=== PATIENT | male | born 1940 | race Caucasian/White ===

== ENCOUNTER 2024-09-22 12:47 | Inpatient (IN) | payer MEDICARE, OTHER ==
[2024-09-22] VITALS (7 sets, daily range): BP systolic 104–112; BP diastolic 63–70; PULSE 101–114; RESP 20–24; TEMP 97.5–97.9; O2SAT 93–97
[~2024-09-22] VITALS: Ht 177.8 cm; Wt 90.9 kg
[2024-09-22 13:44] LABS: BASOPHILS % (AUTO) 0 % (0-1); EOSINOPHILS % (AUTO) 0 % (0-6); HEMATOCRIT 35.6 % (42.0-52.0); HEMOGLOBIN 12.3 g/dl (14.0-17.9); LYMPHOCYTES # (AUTO) 0.9 X10'3 (1.1-4.8); LYMPHOCYTES % (AUTO) 6.7 % (21-51); MEAN CORPUSCULAR HEMOGLOBIN 31.9 PG (27.0-31.0); MEAN CORPUSCULAR HGB CONC 34.5 g/dL (33.0-36.5); MEAN CORPUSCULAR VOLUME 92.4 FL (78-98); MEAN PLATELET VOLUME 8.1 FL (7.4-10.4); MONOCYTES # (AUTO) 1.6 X10'3 (0-0.9); MONOCYTES % (AUTO) 11.4 % (2-12); NEUTROPHILS # (AUTO) 11.2 X10'3 (1.8-7.7); NEUTROPHILS % (AUTO) 81.9 % (42-75); PLATELET COUNT 190 X10'3 (140-440); RED BLOOD COUNT 3.86 X10'6 (4.70-6.10); RED CELL DISTRIBUTION WIDTH 13.3 % (11.5-14.5); WHITE BLOOD COUNT 13.7 X10'3 (4.5-11.0)
[2024-09-22 14:03] LABS: ALANINE AMINOTRANSFERASE 26 U/L (12-78); ALBUMIN 3.3 G/DL (3.4-5.0); ALKALINE PHOSPHATASE 54 IU/L (46-116); ANION GAP 9 (8-16); ASPARTATE AMINO TRANSFERASE 18 U/L (10-37); BILIRUBIN,TOTAL 0.7 MG/DL (0.1-1.0); BLOOD UREA NITROGEN 43 MG/DL (7-18); BUN/CREATININE RATIO 21.8 (10.0-20.0); CALCIUM 8.6 MG/DL (8.5-10.1); CHLORIDE 100 MMOL/L (99-107); CREATININE 1.97 MG/DL (0.60-1.10); GLUCOSE 121 MG/DL (70-104); POTASSIUM 3.8 MMOL/L (3.5-5.1); SODIUM 135 MMOL/L (135-145); TOTAL CARBON DIOXIDE 26.2 MMOL/L (24-32); TOTAL PROTEIN 6.6 G/DL (6.4-8.2); eCRCL 30 ML/MIN; eGFR 33 ML/MIN
[2024-09-22 14:14] LABS: PRO BRAIN NATRIURETIC PEPTIDE 8862 PG/ML (0-450)
[2024-09-22 14:33] LABS: MAGNESIUM 1.9 MG/DL (1.5-2.4)
[2024-09-22] MEDS ORDERED: ondansetron/PF 4mg/2ml inj IV PRN (14:45)
[2024-09-22] MEDS ORDERED: acetaminophen 650mg rectal suppository RC PRN (14:45)
[2024-09-22] MEDS ORDERED: diphenhydrAMINE 50 mg/ml inj IV PRN (14:45)
[2024-09-22] MEDS ORDERED: HYDROcodone/acetaminophen 5mg/325mg tablet PO PRN (14:45)
[2024-09-22] MEDS ORDERED: diphenhydrAMINE 25mg capsule PO PRN (14:45)
[2024-09-22] MEDS ORDERED: acetaminophen 325mg tablet PO PRN ×2 (14:45)
[2024-09-22] MEDS ORDERED: morphine 2 MG/ML inj. syringe IV PRN (14:45)
[2024-09-22] MEDS ORDERED: bisacodyl 10mg suppository rectal RC PRN (14:45)
[2024-09-22] MEDS ORDERED: mag hydrox/Alum hydrox/simeth 30ml oral suspension PO PRN (14:45)
[2024-09-22] MEDS ORDERED: ondansetron 4mg rapidly disintigrating tab PO PRN (14:45)
[2024-09-22] MEDS ORDERED: magnesium hydroxide 30ml (MOM) UD suspension PO PRN (14:45)
[2024-09-22] MEDS: normal saline 1000ML IV soln IVB ONE (14:46)
[2024-09-22 15:00] LABS: D-DIMER 1.64 MG/L FEU (0-0.50)
[2024-09-22] MEDS: normal saline 1000ml 1,000 ML IV SCH (15:14)
[2024-09-22] MEDS: CefTRIAXone/D5W-Rocephin 1gm 50 ML IV SCH (15:14)
[2024-09-22] MEDS: azithromycin/NS 500mg/250ml 250 ML IV SCH (15:14)
[2024-09-22 15:26] LABS: HEMOGLOBIN A1C 6.1 % (4.5-6.2)
[2024-09-22 15:28] LABS: CREATINE KINASE 168 U/L (39-308); LIPASE 26 U/L (16-77)
[2024-09-22 15:36] LABS: APTT 47 SECONDS (22-32); INR 1.1 INR; PROTHROMBIN TIME 11.2 SECONDS (9.0-12.0)
[2024-09-22 15:38] LABS: BILIRUBIN,URINE SMALL (Neg); CLARITY,URINE SLIGHTLY CLOUDY (Clear); GLUCOSE, URINE NEGATIVE (Neg); KETONES,URINE NEGATIVE (Neg); LEUKOCYTE ESTERASE ,URINE NEGATIVE (Neg); NITRITES, URINE NEGATIVE (Neg); OCCULT BLOOD,URINE NEGATIVE (Neg); PH,URINE 5.5 (4.8-8.0); PROTEIN,URINE TRACE mg/dl (Neg); UROBILINOGEN,URINE 0.2 E.U/dL (0.2-1.0)
[2024-09-22 15:41] LABS: COLOR,URINE DARK YELLOW (Yellow); UA COLLECTION TYPE NON-SPECIFIED
[2024-09-22] MEDS: aspirin 81mg, enteric-coated 1 TAB TABLET.DR PO SCH (15:48)
[2024-09-22] MEDS: ipratropium/albuterol 3ml nebule NEB PRN (15:50)
[2024-09-22 15:51] LABS: AMORPHOUS URATES 1+; BACTERIA,URINE FEW /HPF (Neg); MUCUS STRANDS FEW /LPF (Neg); RBC,URINE NONE SEEN /HPF (0-2); RENAL CELLS, URINE FEW /HPF; SQUAMOUS EPITHELIAL CELL,UR NONE SEEN /LPF (FEW); WBC,URINE 0-4 /HPF (0-4)
[2024-09-22 17:00] LABS: PHOSPHORUS 4.2 MG/DL (2.3-4.5)
[2024-09-22] MEDS ORDERED: TAMSULOSIN (17:06)
[2024-09-22] MEDS ORDERED: DILT240C47 (17:06)
[2024-09-22] MEDS ORDERED: OLME20TA69 (17:06)
[2024-09-22] MEDS ORDERED: METO-384 PO (17:06)
[2024-09-22] MEDS ORDERED: OXYC10TA47 (17:06)
[2024-09-22] MEDS ORDERED: CHLO50TA (17:06)
[2024-09-22] MEDS ORDERED: DICL75TA28 (17:06)
[2024-09-22] MEDS ORDERED: FLO0.4C (17:06)
[2024-09-22] MEDS ORDERED: heparin 10,000 units/1 ML INJ IV PRN (17:55)
[2024-09-22] MEDS: MESSAGE TO NURSING IV ONE (18:31)
[2024-09-22] MEDS: heparin 10,000 units/1 ML INJ IV ONE (18:33)
[2024-09-22] MEDS: HEPARIN DRIP-CARDIAC**PHARMACIST-TO-DOSE IV ONE (18:34)
[2024-09-22] MEDS: heparin 25,000 UNIT/250ml bag 250 ML IV PRN (18:34)
[2024-09-22] MEDS ORDERED: LABE300T4 (18:43)
[2024-09-22] MEDS ORDERED: heparin, porcine 5000 units/ml vial SQ SCH (20:00)
[2024-09-22] MEDS: methylPREDNISolone sod succ/PF 40mg inj. IV SCH (21:20)
[2024-09-22] MEDS: docusate sod 100mg capsule PO SCH (21:20)
[2024-09-23] VITALS (14 sets, daily range): BP systolic 110–140; BP diastolic 70–99; PULSE 104–155; RESP 16–26; TEMP 97.3–97.9; O2SAT 96–98
[2024-09-23] MEDS: heparin 25,000 UNIT/250ml bag 250 ML IV PRN (01:18)
[2024-09-23] MEDS: MESSAGE TO NURSING IV ONE ×4 (01:52→23:26)
[2024-09-23] MEDS: pantoprazole 40mg Tablet.DR PO SCH (08:04)
[2024-09-23 08:45] LABS: BASOPHILS % (AUTO) 0.1 % (0-1); EOSINOPHILS % (AUTO) 0 % (0-6); HEMATOCRIT 32.4 % (42.0-52.0); HEMOGLOBIN 11.3 g/dl (14.0-17.9); LYMPHOCYTES # (AUTO) 0.4 X10'3 (1.1-4.8); LYMPHOCYTES % (AUTO) 5.1 % (21-51); MEAN CORPUSCULAR VOLUME 91.4 FL (78-98); MEAN PLATELET VOLUME 8.1 FL (7.4-10.4); MONOCYTES # (AUTO) 0.1 X10'3 (0-0.9); MONOCYTES % (AUTO) 1.6 % (2-12); NEUTROPHILS # (AUTO) 7.4 X10'3 (1.8-7.7); NEUTROPHILS % (AUTO) 93.2 % (42-75); PLATELET COUNT 166 X10'3 (140-440); RED BLOOD COUNT 3.54 X10'6 (4.70-6.10); RED CELL DISTRIBUTION WIDTH 13.1 % (11.5-14.5); WHITE BLOOD COUNT 7.9 X10'3 (4.5-11.0)
[2024-09-23 09:10] LABS: ALANINE AMINOTRANSFERASE 25 U/L (12-78); ALBUMIN 2.6 G/DL (3.4-5.0); ALBUMIN/GLOBULIN RATIO 0.8 (1.1-1.5); ALKALINE PHOSPHATASE 47 IU/L (46-116); ANION GAP 11 (8-16); ASPARTATE AMINO TRANSFERASE 22 U/L (10-37); BILIRUBIN,TOTAL 0.3 MG/DL (0.1-1.0); BLOOD UREA NITROGEN 41 MG/DL (7-18); BUN/CREATININE RATIO 28.7 (10.0-20.0); CALCIUM 8.3 MG/DL (8.5-10.1); CHLORIDE 103 MMOL/L (99-107); CHOL/HDL RATIO 2.6 (0.00-4.99); CHOLESTEROL 113 MG/DL (0-200); CREATININE 1.43 MG/DL (0.60-1.10); GLUCOSE 190 MG/DL (70-104); HDL CHOLESTEROL 43 MG/DL (35-60); LDL CHOLESTEROL 57 MG/DL (50-100); POTASSIUM 3.4 MMOL/L (3.5-5.1); SODIUM 136 MMOL/L (135-145); TOTAL CARBON DIOXIDE 21.8 MMOL/L (24-32); TOTAL PROTEIN 5.8 G/DL (6.4-8.2); TRIGLYCERIDES 59 MG/DL (20-135); eCRCL 41 ML/MIN; eGFR 47 ML/MIN
[2024-09-23] MEDS ORDERED: magnesium sulf-water 2g/50mL 50 ML IV PRN (14:05)
[2024-09-23] MEDS ORDERED: potassium Cl 40MEQ/1/2NS 520ml 520 ML IV PRN (14:05)
[2024-09-23] MEDS ORDERED: magnesium Cl slow-release 64mg tablet PO PRN (14:05)
[2024-09-23] MEDS ORDERED: magnesium sulf-water 4G/100mL 100 ML IV PRN (14:05)
[2024-09-23] MEDS ORDERED: diltiazem-D5W 125mg/125ml 125 ML IV SCH (19:10)
[2024-09-23] MEDS: K and/or MAG REPLACEMENT MC SCH (20:00)
[2024-09-23] MEDS: diltiazem-NS 100mg/100ml 100 ML IV SCH (21:02)
[2024-09-24] VITALS (39 sets, daily range): BP systolic 98–144; BP diastolic 66–95; PULSE 96–153; RESP 17–34; TEMP 97.1–98.4; O2SAT 91–98
[2024-09-24] MEDS: Melatonin 3mg tablet PO ONE (00:43)
[2024-09-24 05:47] LABS: BASOPHILS % (AUTO) 0 % (0-1); EOSINOPHILS % (AUTO) 0 % (0-6); HEMATOCRIT 30.8 % (42.0-52.0); HEMOGLOBIN 10.8 g/dl (14.0-17.9); LYMPHOCYTES # (AUTO) 0.5 X10'3 (1.1-4.8); LYMPHOCYTES % (AUTO) 4.5 % (21-51); MEAN CORPUSCULAR HGB CONC 34.9 g/dL (33.0-36.5); MEAN CORPUSCULAR VOLUME 91.6 FL (78-98); MEAN PLATELET VOLUME 7.7 FL (7.4-10.4); MONOCYTES # (AUTO) 0.4 X10'3 (0-0.9); MONOCYTES % (AUTO) 3.3 % (2-12); NEUTROPHILS # (AUTO) 10.3 X10'3 (1.8-7.7); NEUTROPHILS % (AUTO) 92.2 % (42-75); PLATELET COUNT 189 X10'3 (140-440); RED BLOOD COUNT 3.37 X10'6 (4.70-6.10); RED CELL DISTRIBUTION WIDTH 13.3 % (11.5-14.5); WHITE BLOOD COUNT 11.2 X10'3 (4.5-11.0)
[2024-09-24 06:09] LABS: ALANINE AMINOTRANSFERASE 28 U/L (12-78); ALBUMIN 2.6 G/DL (3.4-5.0); ALBUMIN/GLOBULIN RATIO 0.8 (1.1-1.5); ALKALINE PHOSPHATASE 46 IU/L (46-116); ANION GAP 10 (8-16); ASPARTATE AMINO TRANSFERASE 27 U/L (10-37); BILIRUBIN,TOTAL 0.3 MG/DL (0.1-1.0); BLOOD UREA NITROGEN 48 MG/DL (7-18); BUN/CREATININE RATIO 39.7 (10.0-20.0); CALCIUM 8.6 MG/DL (8.5-10.1); CHLORIDE 105 MMOL/L (99-107); CREATININE 1.21 MG/DL (0.60-1.10); GLUCOSE 184 MG/DL (70-104); POTASSIUM 3.2 MMOL/L (3.5-5.1); SODIUM 137 MMOL/L (135-145); TOTAL CARBON DIOXIDE 21.6 MMOL/L (24-32); TOTAL PROTEIN 5.8 G/DL (6.4-8.2); eCRCL 49 ML/MIN; eGFR 57 ML/MIN
[2024-09-24] MEDS: MESSAGE TO NURSING IV ONE (07:08)
[2024-09-24] MEDS: potassium Cl 20 mEq SR tablet PO PRN (07:42)
[2024-09-24] MEDS: albuterol 2.5 MG/3 ML nebule NEB SCH (15:33)
[2024-09-24] MEDS: amiodarone 200mg tablet PO SCH (16:43)
[2024-09-24] MEDS: furosemide 20 MG/2 ML vial IV SCH (19:51)
[2024-09-24] MEDS: heparin, porcine 5000 units/ml vial SQ SCH (19:52)
[2024-09-24] MEDS: methylPREDNISolone sod succ/PF 40mg inj. IV SCH (19:54)
[2024-09-24] MEDS: temazepam 15mg capsule PO PRN (19:58)
[2024-09-25] VITALS (26 sets, daily range): BP systolic 109–143; BP diastolic 58–87; PULSE 85–141; RESP 15–28; TEMP 97–98.8; O2SAT 96–98
[2024-09-25 07:04] LABS: BASOPHILS % (AUTO) 0 % (0-1); EOSINOPHILS % (AUTO) 0 % (0-6); HEMATOCRIT 32.6 % (42.0-52.0); LYMPHOCYTES # (AUTO) 0.4 X10'3 (1.1-4.8); LYMPHOCYTES % (AUTO) 3.2 % (21-51); MEAN CORPUSCULAR HEMOGLOBIN 31.4 PG (27.0-31.0); MEAN CORPUSCULAR HGB CONC 33.7 g/dL (33.0-36.5); MEAN CORPUSCULAR VOLUME 93.3 FL (78-98); MEAN PLATELET VOLUME 7.8 FL (7.4-10.4); MONOCYTES # (AUTO) 0.4 X10'3 (0-0.9); MONOCYTES % (AUTO) 3.4 % (2-12); NEUTROPHILS # (AUTO) 11.6 X10'3 (1.8-7.7); NEUTROPHILS % (AUTO) 93.4 % (42-75); PLATELET COUNT 209 X10'3 (140-440); RED BLOOD COUNT 3.49 X10'6 (4.70-6.10); RED CELL DISTRIBUTION WIDTH 13.4 % (11.5-14.5); WHITE BLOOD COUNT 12.4 X10'3 (4.5-11.0)
[2024-09-25 08:11] LABS: ALANINE AMINOTRANSFERASE 34 U/L (12-78); ALBUMIN 2.6 G/DL (3.4-5.0); ALBUMIN/GLOBULIN RATIO 0.9 (1.1-1.5); ALKALINE PHOSPHATASE 47 IU/L (46-116); ANION GAP 13 (8-16); ASPARTATE AMINO TRANSFERASE 22 U/L (10-37); BILIRUBIN,TOTAL 0.2 MG/DL (0.1-1.0); BLOOD UREA NITROGEN 43 MG/DL (7-18); BUN/CREATININE RATIO 31.9 (10.0-20.0); CALCIUM 8.7 MG/DL (8.5-10.1); CHLORIDE 105 MMOL/L (99-107); CREATININE 1.35 MG/DL (0.60-1.10); GLUCOSE 177 MG/DL (70-104); SODIUM 141 MMOL/L (135-145); TOTAL CARBON DIOXIDE 23.2 MMOL/L (24-32); TOTAL PROTEIN 5.6 G/DL (6.4-8.2); eCRCL 44 ML/MIN; eGFR 51 ML/MIN
[2024-09-25] MEDS: potassium Cl 20 mEq SR tablet PO PRN (09:07)
[2024-09-25] MEDS: diltiazem 30mg tablet PO SCH (13:37)
[2024-09-25] MEDS: amiodarone 150mg/dext, iso-os 100 ML IV ONE (13:38)
[2024-09-25] MEDS: amiodarone/D5 360MG/200ML BAG 200 ML IV SCH (14:03)
[2024-09-25] MEDS: levalbuterol 0.63mg/3ml nebule IH SCH (15:00)
[2024-09-25] MEDS: potassium Cl 20 mEq SR tablet PO SCH (16:54)
[2024-09-25] MEDS: methylPREDNISolone sod succ/PF 40mg inj. IV SCH (19:44)
[2024-09-25] MEDS: furosemide 40mg/4ml inj IV SCH (19:45)
[2024-09-26] VITALS (28 sets, daily range): BP systolic 96–146; BP diastolic 52–103; PULSE 90–143; RESP 12–26; TEMP 97.7–98.6; O2SAT 95–98
[2024-09-26 07:08] LABS: BASOPHILS % (AUTO) 0 % (0-1); EOSINOPHILS % (AUTO) 0 % (0-6); HEMATOCRIT 33.1 % (42.0-52.0); HEMOGLOBIN 11.1 g/dl (14.0-17.9); LYMPHOCYTES # (AUTO) 0.4 X10'3 (1.1-4.8); LYMPHOCYTES % (AUTO) 2.8 % (21-51); MEAN CORPUSCULAR HGB CONC 33.6 g/dL (33.0-36.5); MEAN CORPUSCULAR VOLUME 92.2 FL (78-98); MEAN PLATELET VOLUME 7.8 FL (7.4-10.4); MONOCYTES # (AUTO) 0.5 X10'3 (0-0.9); MONOCYTES % (AUTO) 3.7 % (2-12); NEUTROPHILS # (AUTO) 12.8 X10'3 (1.8-7.7); NEUTROPHILS % (AUTO) 93.5 % (42-75); PLATELET COUNT 230 X10'3 (140-440); RED BLOOD COUNT 3.59 X10'6 (4.70-6.10); RED CELL DISTRIBUTION WIDTH 13.2 % (11.5-14.5); WHITE BLOOD COUNT 13.7 X10'3 (4.5-11.0)
[2024-09-26 07:45] LABS: ALANINE AMINOTRANSFERASE 36 U/L (12-78); ALBUMIN 2.8 G/DL (3.4-5.0); ALBUMIN/GLOBULIN RATIO 0.9 (1.1-1.5); ALKALINE PHOSPHATASE 55 IU/L (46-116); ANION GAP 12 (8-16); ASPARTATE AMINO TRANSFERASE 18 U/L (10-37); BILIRUBIN,TOTAL 0.3 MG/DL (0.1-1.0); BLOOD UREA NITROGEN 49 MG/DL (7-18); BUN/CREATININE RATIO 29.5 (10.0-20.0); CHLORIDE 107 MMOL/L (99-107); CREATININE 1.66 MG/DL (0.60-1.10); GLUCOSE 252 MG/DL (70-104); POTASSIUM 3.9 MMOL/L (3.5-5.1); SODIUM 142 MMOL/L (135-145); TOTAL CARBON DIOXIDE 22.6 MMOL/L (24-32); TOTAL PROTEIN 5.9 G/DL (6.4-8.2); eCRCL 35 ML/MIN; eGFR 40 ML/MIN
[2024-09-26] MEDS: ipratropium 0.5 MG/2.5ML nebule IH SCH (08:07)
[2024-09-26] MEDS: albuterol 2.5 MG/3 ML nebule CONTNEB ONE (08:08)
[2024-09-26] MEDS: digoxin 250mcg/ml 2ml ampule IV ONE (11:46)
[2024-09-26] MEDS: diltiazem 30mg tablet PO SCH (14:35)
[2024-09-26] MEDS: digoxin 250mcg/ml 2ml ampule IV SCH (19:13)
[2024-09-27] VITALS (14 sets, daily range): BP systolic 113–155; BP diastolic 55–92; PULSE 92–145; RESP 15–30; TEMP 98.1–98.6; O2SAT 95–99
[2024-09-27 06:46] LABS: BASOPHILS % (AUTO) 0.1 % (0-1); EOSINOPHILS % (AUTO) 0 % (0-6); HEMATOCRIT 32.7 % (42.0-52.0); HEMOGLOBIN 11.2 g/dl (14.0-17.9); LYMPHOCYTES # (AUTO) 0.6 X10'3 (1.1-4.8); LYMPHOCYTES % (AUTO) 3.6 % (21-51); MEAN CORPUSCULAR HEMOGLOBIN 31.5 PG (27.0-31.0); MEAN CORPUSCULAR HGB CONC 34.4 g/dL (33.0-36.5); MEAN CORPUSCULAR VOLUME 91.6 FL (78-98); MEAN PLATELET VOLUME 7.2 FL (7.4-10.4); MONOCYTES # (AUTO) 0.6 X10'3 (0-0.9); MONOCYTES % (AUTO) 3.6 % (2-12); NEUTROPHILS # (AUTO) 14.5 X10'3 (1.8-7.7); NEUTROPHILS % (AUTO) 92.7 % (42-75); PLATELET COUNT 240 X10'3 (140-440); RED BLOOD COUNT 3.57 X10'6 (4.70-6.10); RED CELL DISTRIBUTION WIDTH 13.3 % (11.5-14.5); WHITE BLOOD COUNT 15.7 X10'3 (4.5-11.0)
[2024-09-27 07:21] LABS: ALANINE AMINOTRANSFERASE 41 U/L (12-78); ALBUMIN 2.7 G/DL (3.4-5.0); ALKALINE PHOSPHATASE 54 IU/L (46-116); ANION GAP 13 (8-16); ASPARTATE AMINO TRANSFERASE 14 U/L (10-37); BILIRUBIN,TOTAL 0.3 MG/DL (0.1-1.0); BLOOD UREA NITROGEN 48 MG/DL (7-18); CALCIUM 8.8 MG/DL (8.5-10.1); CHLORIDE 106 MMOL/L (99-107); GLUCOSE 213 MG/DL (70-104); POTASSIUM 4.3 MMOL/L (3.5-5.1); SODIUM 142 MMOL/L (135-145); TOTAL CARBON DIOXIDE 23.5 MMOL/L (24-32); TOTAL PROTEIN 5.5 G/DL (6.4-8.2); eCRCL 39 ML/MIN; eGFR 45 ML/MIN
[2024-09-27] MEDS: CefTRIAXone 2gm/D5W 50ml BAG 50 ML IV SCH (08:06)
[2024-09-27] MEDS: furosemide 40mg/4ml inj IV SCH (08:06)
[2024-09-27 08:29] LABS: TOTAL CELLS COUNTED 100
[2024-09-27 08:30] LABS: PLATELET ESTIMATE NORMAL
[2024-09-27] MEDS: amiodarone 200mg tablet PO ONE (11:38)
[2024-09-27] MEDS ORDERED: amiodarone 200mg tablet PO SCH (20:00)
== END 2024-09-27 14:00 | DRG 280 ==
LOC: ER 12:47 → ED HOLD 14:52 → PCU 3S 19:50
PROVIDERS: ADMIT Family Medicine; ATTEND Family Medicine
PROC: CB121ZZ Planar Nuclear Medicine Imaging of Lungs and Bronchi using Technetium 99m (Tc-99m) (ICD-10-PCS; principal; 2024-09-22)
DX: I13.0 Hypertensive heart and chronic kidney disease with heart failure and stage 1 through stage 4 chronic kidney disease, or unspecified chronic kidney disease (principal); I50.33 Acute on chronic diastolic (congestive) heart failure; I21.A1 Myocardial infarction type 2; J96.01 Acute respiratory failure with hypoxia; N17.0 Acute kidney failure with tubular necrosis; Z79.899 Other long term (current) drug therapy; Z20.822 Contact with and (suspected) exposure to COVID-19; I48.91 Unspecified atrial fibrillation; D64.9 Anemia, unspecified; E86.1 Hypovolemia; G89.4 Chronic pain syndrome; I95.9 Hypotension, unspecified; I27.20 Pulmonary hypertension, unspecified; N18.9 Chronic kidney disease, unspecified; J98.4 Other disorders of lung; J45.909 Unspecified asthma, uncomplicated; J20.9 Acute bronchitis, unspecified; K21.9 Gastro-esophageal reflux disease without esophagitis
CPT/HCPCS: 36415; 71045; 71250; 74176; 78582; 80053; 80061; 81001; 82550; 83036; 83605; 83690; 83735; 83880; 84100; 84132; 84145; 84443; 84484; 85007; 85025; 85379; 85610; 85730; 87040; 87081; 87502; 87503; 87811; 93005; 93306; 94640; 94664; 94668; 94760; 97116; 97161; 97530; 99285; A7015; A9539; A9540; G0378; J0282; J0456; J0696; J1160; J1644; J1940; J2919; J3490; J7030; J7614

== ENCOUNTER 2024-11-06 10:39 | Day surgery (SDC) | payer MEDICARE, OTHER ==
[2024-11-03 11:24] LABS: BASOPHILS % (AUTO) 0.2 % (0-1); EOSINOPHILS % (AUTO) 0 % (0-6); HEMATOCRIT 33.3 % (42.0-52.0); HEMOGLOBIN 11.4 g/dl (14.0-17.9); LYMPHOCYTES # (AUTO) 1.1 X10'3 (1.1-4.8); LYMPHOCYTES % (AUTO) 13.9 % (21-51); MEAN CORPUSCULAR HEMOGLOBIN 32.1 PG (27.0-31.0); MEAN CORPUSCULAR HGB CONC 34.3 g/dL (33.0-36.5); MEAN CORPUSCULAR VOLUME 93.6 FL (78-98); MEAN PLATELET VOLUME 7.2 FL (7.4-10.4); MONOCYTES # (AUTO) 0.7 X10'3 (0-0.9); MONOCYTES % (AUTO) 8.9 % (2-12); NEUTROPHILS # (AUTO) 5.9 X10'3 (1.8-7.7); PLATELET COUNT 304 X10'3 (140-440); RED BLOOD COUNT 3.56 X10'6 (4.70-6.10); RED CELL DISTRIBUTION WIDTH 15.5 % (11.5-14.5); WHITE BLOOD COUNT 7.7 X10'3 (4.5-11.0)
[2024-11-03 11:32] LABS: ALBUMIN 3.6 G/DL (3.4-5.0); ANION GAP 6 (8-16); BLOOD UREA NITROGEN 39 MG/DL (7-18); BUN/CREATININE RATIO 21.3 (10.0-20.0); CALCIUM 8.6 MG/DL (8.5-10.1); CHLORIDE 104 MMOL/L (99-107); CREATININE 1.83 MG/DL (0.60-1.10); GLUCOSE 108 MG/DL (70-104); POTASSIUM 4.1 MMOL/L (3.5-5.1); SODIUM 140 MMOL/L (135-145); TOTAL CARBON DIOXIDE 29.9 MMOL/L (24-32); eGFR 36 ML/MIN
[2024-11-03 11:35] LABS: APTT 47 SECONDS (22-32); INR 1.1 INR; PROTHROMBIN TIME 11.4 SECONDS (9.0-12.0)
[2024-11-06] VITALS (7 sets, daily range): BP systolic 108–132; BP diastolic 68–95; PULSE 71–96; RESP 12–20; TEMP 98.4; O2SAT 95–98
[~2024-11-06] VITALS: Ht 177.8 cm; Wt 89.9 kg
[~2024-11-06 10:39] MED LIST: CHLO50TA; DICL75TA28; DILT240C47; LABE300T4; METO-384 PO; OLME20TA69; OXYC10TA47
[2024-11-06] MEDS ORDERED: FURO40TA4 PO (11:04)
[2024-11-06] MEDS ORDERED: AMI200T PO (11:04)
[2024-11-06] MEDS ORDERED: POTA-207 PO (11:04)
[2024-11-06] MEDS ORDERED: APIX5TAB3 PO (11:04)
[2024-11-06] MEDS ORDERED: VALS40TA11 PO (11:04)
[2024-11-06] MEDS: MIDAZolam 1mg/ml 10ml vial IV ONE (12:44)
[2024-11-06] MEDS: fentaNYL/PF 50MCG/1 ML 2ML syringe IV ONE (12:44)
[2024-11-06] MEDS: normal saline 1000ml 1,000 ML IV SCH (12:45)
== END 2024-11-06 13:55 | disposition home or self-care (01) ==
LOC: SSTAY O 10:39
PROVIDERS: ATTEND Student in an Organized Health Care Education/Training Program
DX: I48.91 Unspecified atrial fibrillation (principal); N18.9 Chronic kidney disease, unspecified; K21.9 Gastro-esophageal reflux disease without esophagitis; I50.9 Heart failure, unspecified; D64.9 Anemia, unspecified; Z79.899 Other long term (current) drug therapy; Z85.46 Personal history of malignant neoplasm of prostate
CPT/HCPCS: 36415; 80048; 85025; 85610; 85730; 92960; 93005; J2250; J3010; J7030; Z7610

== ENCOUNTER 2025-04-03 08:55 | Day surgery (SDC) | payer MEDICARE, OTHER ==
[~2025-04-03] VITALS: Ht 177.8 cm; Wt 86.5 kg
[~2025-04-03 08:55] MED LIST changes: +AMIO200T76 PO; +APIX5TAB3 PO; -CHLO50TA; -DICL75TA28; -DILT240C47; +FURO40TA4 PO; -LABE300T4; -METO-384 PO; -OLME20TA69; +POTA-207 PO; +VALS40TA11 PO
[2025-04-03] MEDS ORDERED: SPIR25TA5 PO (09:29)
[2025-04-03] MEDS ORDERED: OXYC-964 PO (09:31)
[2025-04-03 09:32] VITALS: BP 150/70; PULSE 52; RESP 14; TEMP 98.2; O2SAT 99
[2025-04-03] MEDS ORDERED: ASPI-1475 PO (09:32)
[2025-04-03] MEDS ORDERED: CARV3.122 PO (09:32)
[2025-04-03] MEDS ORDERED: normal saline 1000ml 1,000 ML IV SCH (09:45)
[2025-04-03] MEDS ORDERED: MIDAZolam 1mg/ml 10ml vial IV ONE (09:45)
[2025-04-03] MEDS ORDERED: fentaNYL/PF 50MCG/1 ML 2ML syringe IV ONE (09:45)
[2025-04-03 09:53] LABS: MEAN PLATELET VOLUME 7.6 FL (7.4-10.4); RED CELL DISTRIBUTION WIDTH 13.7 % (11.5-14.5)
[2025-04-03 10:01] LABS: CREATININE 1.31 MG/DL (0.60-1.10); TOTAL CARBON DIOXIDE 26.6 MMOL/L (24-32); eCRCL 45 ML/MIN; eGFR 52 ML/MIN
[2025-04-03 10:05] LABS: APTT 39 SECONDS (22-32); INR 1.1 INR
[2025-04-03] MEDS ORDERED: midazolam 1 mg/ML 2ml injection ONE (11:47)
[2025-04-03] MEDS ORDERED: fentaNYL/PF 50MCG/1 ML 2ML syringe ONE (11:47)
[2025-04-03 13:20] VITALS: BP 144/78; PULSE 57; RESP 14; O2SAT 96
[2025-04-03 13:35] VITALS: BP 151/84; PULSE 62; RESP 14; O2SAT 95
[2025-04-03] MEDS ORDERED: CLOP75TA33 PO (13:37)
[2025-04-03] MEDS ORDERED: ASPI81TA52 PO (13:38)
[2025-04-03 13:50] VITALS: BP 146/76; PULSE 61; RESP 12; O2SAT 95
--- NOTE | 2025-04-04 18:50 | CARDIOLOGY REPORT ---
APPROVED REPORT EXAM: Focused, limited transesophageal echocardiogram with color flow Doppler. Patient Location: [facility] Blood Pressure: 168/81 mmHg Heart Rate: 70 bpm Rhythm: SINUS Indications POST WATCHMAN FLX LUCY CLOSURE DEVICE IMPLANTATION FOLLOW UP EVALUATE DEVICE FOR THROMBUS, POSITION, AND SEAL UNKNOWN SIZED WATCHMAN FLX LUCY CLOSURE DEVICE IMPLANTED 01/2025 ( [facility]) ABLATION 01/2025 ([facility]) CARDIOVERSION 11/06/24 [facility] PROBE PASSED BY: Sunil Johnson MD Teacher Music: Sunil Johnson MD / [facility] Previous echo: 09/22/24 [facility] EF: 65%; nlLV; modCLVH; mRVE; RVSP 41; sevLAE; nlAV; nlMV-trMR; modTR; trPI; ascASO 3.8; noPE LEFT VENTRICLE Normal LV size with mild concentric hypertrophy. Overall systolic function is mildly reduced. LVEF is 50-55%. RIGHT VENTRICLE RV is mildly dilated with adequate function. ATRIA Left atrium is severely dilated. 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 Left upper pulmonary vein identified. Successfully occluded left atrial appendage with well visualized Watchman device well positioned without thrombus. No residual flow detected around device in all views. MITRAL VALVE Mild MV annular and leaflet calcification without stenosis. Mild regurgitation. PERICARDIUM Normal pericardium. No effusion. CONCLUSION Normal LV size with mild concentric hypertrophy. Overall systolic function is mildly reduced. LVEF is 50-55%. Left atrium is severely dilated. 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 Left upper pulmonary vein identified. Successfully occluded left atrial appendage with well visualized Watchman device well positioned without thrombus. No residual flow detected arou nd device in all views. Mild MV annular and leaflet calcification without stenosis. Mild regurgitatio n. Normal pericardium. No effusion. Conclusion Normal LV size with mild concentric hypertrophy. Overall systolic function is mildly reduced. LVEF is 50-55%. Left atrium is severely dilated. 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 Left upper pulmonary vein identified. Successfully occluded left atrial appendage with w ell visualized Watchman device well positioned without thrombus. No residual flow detected around de vice in all views. Mild MV annular and leaflet calcification without stenosis. Mild regurgitation. Normal pericardium. No effusion.
== END 2025-04-03 13:55 | disposition home or self-care (01) ==
LOC: SSTAY O 08:55
PROVIDERS: ATTEND Student in an Organized Health Care Education/Training Program
DX: I48.91 Unspecified atrial fibrillation (principal); I34.0 Nonrheumatic mitral (valve) insufficiency; I13.0 Hypertensive heart and chronic kidney disease with heart failure and stage 1 through stage 4 chronic kidney disease, or unspecified chronic kidney disease; N18.9 Chronic kidney disease, unspecified; I50.9 Heart failure, unspecified; K21.9 Gastro-esophageal reflux disease without esophagitis; I25.2 Old myocardial infarction; Z79.82 Long term (current) use of aspirin; Z79.891 Long term (current) use of opiate analgesic; Z79.899 Other long term (current) drug therapy
CPT/HCPCS: 36415; 80048; 85025; 85610; 85730; 93312; 93325; 99152; J2250; J3010; J7030